=== PATIENT | female | born 1995 | race Caucasian/White ===

== ENCOUNTER 2024-11-26 11:47 | Outpatient (CLI) | payer OTHER, SELFPAY ==
--- NOTE | ~2024-11-26 | XR_ITS ---
Left Hand Technique: PA and lateral views were obtained. Clinical History: Psoriasis Findings: No acute fracture or dislocation is seen. Osseous alignment is anatomic. Joint spaces are p reserved. Soft tissues are unremarkable. Impression: Unremarkable left hand. Reviewed, dictated and finalized at location M. Impression: Unremarkable left hand.
--- NOTE | ~2024-11-26 | XR_ITS ---
Lumbosacral Spine: AP, oblique, and lateral views Clinical History: Psoriasis Findings: The normal lordotic curve is maintained. The vertebral bodies and posterior elements are i ntact. The intervertebral disc spaces are preserved. The sacroiliac joints are normally outlined. Impression: No significant abnormality. Reviewed, dictated and finalized at [facility]. Impression: No significant abnormality.
--- NOTE | ~2024-11-26 | XR_ITS ---
AP and oblique views of the SI joints CLINICAL HISTORY: Psoriasis FINDINGS: Visualized hip and SI joints are unremarkable. No degenerative change. No erosive change or sclerosis. IUD present. Soft tissues are unremarkable. IMPRESSION: Unremarkable exam. Reviewed, dictated and finalized at location M. IMPRESSION: Unremarkable exam.
--- NOTE | ~2024-11-26 | XR_ITS ---
Right Hand Technique: PA and lateral views were obtained. Clinical History: Psoriasis Findings: No acute fracture or dislocation is seen. Osseous alignment is anatomic. Joint spaces are p reserved. Soft tissues are unremarkable. Impression: Unremarkable right hand. Reviewed, dictated and finalized at location M. Impression: Unremarkable right hand.
--- OUTSIDE RECORDS SUMMARY | 2024-11-26 13:07 | XMS_ITS | Referral Summary ---
Author Organization [facility] at the Medical Office Building Address [address] [place] [phone] Care Team Providers Care Clock Mechanic Name Role Phone Concepcion Sheehan MD Primary Care Pro vider Encounters Date Type Department Care Team Description 10/26/2024 Telephone [facility] Medical [facility] Primary Care at [address] [phone] Concepcion Sheehan MD Medical Question/Miscellaneou s 09/13/2024 9:00 AM CDT Office Visit [facility] Primary Care at [address] [phone] Concepcion Sheehan MD Jaw pain (Primary Dx); Need for vaccination 09/12/2024 Telephone [facility] Primary Care at [address] [phone] Concepcion Sheehan MD from Last 3 Months Allergies No known active allergies Medications ixekizumab (TALTZ) 80 mg/mL syringe Inject 1 mL (80 mg total) under the skin once every four weeks 04/15/20 20 Active levonorgestreL (DUSTIN) 14 mcg/24 hrs (3 yrs) 13.5 mg IUD by intrauterine route as directed Active tretinoin (RETIN-A) 0.01 % gelIndications: Acne, unspecified acne type Wash face at night. Wait 30 minutes then apply a pea-sized amount of retinoid cream. Start off every other day and increase to daily as tolerated. If too drying can add moisturizer. 135 g 4 01/30/20 24 Active meloxicam (MOBIC) 15 mg tabletIndicatio ns:Jaw pain Take 1 tablet (15 mg total) by mouth daily for 14 days 14 tablet 09/14/19 25 Active cyclobenzaprine (FLEXERIL) 5 mg tabletIndicatio ns:Jaw pain Take 1-2 tablets (5-10 mg total) by mouth 3 (three) times a day as needed for muscle spasms 30 tablet 09/14/19 25 Active lisdexamfetamin e (Vyvanse) 30 mg tablet,chewable Take 30 mg by mouth daily 30 tablet 11/13/19 25 026 Active lisdexamfetamin e (Vyvanse) 30 mg tablet,chewable Take 30 mg by mouth daily 30 tablet 10/12/19 25 025 Discontin ued(Reord er) Active Problems Problem Noted Date Diagnosed Date Acne 01/30/2024 Assessment & Plan (01/30/2024 4:11 PM CDT): Uncontrolled Will start tretinoin, discussed cannot take if were to get Annual physical exam 01/24/2023 Assessment & Plan (08/06/2024 7:47 AM PREPARATORY TECHNICIAN): Reviewed PMH & Reviewed medications and supplements HCM: orders placed as needed Encouraged to follow up with gynecology for abnormal pap Assessment & Plan (01/30/2024 4:11 PM CDT): Reviewed PMH & FH Phq reviewed Reviewed medications and supplements HCM: orders placed as needed Encouraged to follow up with gynecology for abnormal pap Assessment & Plan (01/24/2023 10:17 AM CDT): Reviewed PMH & Reviewed medications and supplements HCM: orders placed as needed Immunosuppression 09/21/2022 Assessment & Plan (08/06/2024 7:47 AM PREPARATORY TECHNICIAN): 2/2 kemal treatment for psoriasis Advise PCV and shingrex IUD (intrauterine device) in place 09/21/2022 Menstrual disorder 10/30/2020 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 Overview (09/21/2022): Surgical correction today Surgical correction today Psoriasis 05/22/2018 Assessment & Plan (08/06/2024 7:47 AM PREPARATORY TECHNICIAN): Following with dermatology Assessment & Plan (01/24/2023 10:19 AM CDT): Following with dermatology Assessment & Plan (08/23/2022 2:01 PM CDT): Following with dermatology On taltz, triamcinolone and atarax Assessment & Plan (02/17/2022 10:11 AM CDT): Following with dermatology On taltz Assessment & Plan (11/18/2021 3:46 PM CDT): Following with dermatology Assessment & Plan (09/08/2021 2:09 PM CDT): On taltz, continue Referral for foot setter appointment next week ADHD (attention deficit hyperactivity disorder) Assessment & Plan (08/06/2024 7:47 AM PREPARATORY TECHNICIAN): controlled PDMP reviewed, no red flags Continue 40mg vyvanse Assessment & Plan (01/30/2024 4:03 PM CDT): Stable PDMP reviewed, no red flags Continue 40mg vyvanse Assessment & Plan (01/24/2023 10:17 AM CDT): Stable PDMP reviewed, no red flags Continue 40mg vyvanse Assessment & Plan (08/23/2022 2:02 PM CDT): Stable PDMP reviewed, no red flags Continue 40mg vyvanse Assessment & Plan (02/17/2022 10:10 AM CDT): Continue 40mg vyvanse Assessment & Plan (11/18/2021 3:43 PM CDT): Uncontrolled off medications Reviewed previous PCP records PDMP reviewed, no red flags Will refill vyvanse 40mg Assessment & Plan (09/09/2021 1:17 PM CDT): Uncontrolled off medications Reviewed previous PCP records PDMP reviewed, no red flags Will refill vyvanse 40mg Immunizations Immunization Administration Dates Next Due Influenza, Unspecified 03/22/2024(Deferr ed: Patient Refused),04/04/2023(Deferred: Patient Refused) Pneumococcal Conjugate Pcv20 09/13/2024 Tdap 09/13/2024,06/13/2014 Social History Tobacco Use Types Packs/Day Years Used Date Smoking Tobacco: Never Cigarettes Smokeless Tobacco: Never Tobacco Cessation:Counseling Given: Not Answered AUDIT-C Answer Date Recorded Q1: How often do you have a drink containing alc ohol? Monthly or less 08/06/2024 Average Number of Drinks Not on file 025 Frequency of Binge Drinking Not on file 07/15 PHQ-2 Answer Date Recorded PHQ-2 Total Score (If total score is 3 or more points, staff should administer the PHQ-9) 0 08/06/2024 PHQ-9 Answer Date Recorded PHQ-9 Total Score 2 08/06/2024 Comments No Sex and Gender Information Value Date Recorded Sex Assigned at Not on file Legal Sex Female 4:08 PM CDT Gender Identity Female 09/20/2022 10:51 PM CDT Sexual Orientation Straight 09/20/2022 10 :51 PM CDT Last Filed Vital Signs Vital Sign Reading Time Taken Comments Blood Pressure 112/70 09/13/2024 8:59 AM CDT Pulse 68 09/13/2024 8:59 AM CDT Temperature 37.1 C (98.8 F) 09/13/2024 8:59 AM CDT Respiratory Rate 18 09/13/2024 8:59 AM CDT Oxygen Saturation 99% 09/13/2024 8:59 AM CDT Inhaled Oxygen Concentration - - Weight 59.9 kg (132 lb) 09/13/2024 8:59 AM CDT Height 165.1 cm (5' 5) 09/13/2024 8:59 AM CDT Body Mass Index 21.97 09/13/2024 8:59 AM CDT Plan of Treatment Not on file Procedures Procedure Name Priority Date/Time Associated Diagnosis Comments PAP WITH REFLEX TO HIGH RISK HPV Routine 09/21/2022 7:51 AM CDT Cervical cancer screening Well woman exam HEPATITIS C ANTIBODY Routine 09/18/2021 12:56 PM CDT from Last 3 Months or Most Recently Relevant to Health Maintenance Results * (ABNORMAL) Pap with reflex to High Risk HPV (09/21/2022 7:51 AM CDT) Thin prep (Pap test) 09/21/2022 7:51 AM CDT 09/22/2022 7:51 AM CDT Narrative PATHOLOGY [facility] - 09/29/2022 5:52 PM CDT [facility] Department of Pathology [address] [place] [address] Final Report with Addendum Note to Patients: This report may contain a detailed description of human tissue sent by a health care provider to the laboratory for pathologic evaluation. The content of this report is essential for diagnosis and may provide important critical findings. This information may be unfamiliar to patients to review without a medical professional present. It is advised that the patient review this report in the presence of a health care provider who can answer questions and explain the details. Patient Name: BACILIO WOOD Address: [address] [place] [address] Gender: F : 1995 (Age: 26) Service: Location: N : [id number] [facility] #: [id number] Patient Type: E SPECIMEN Taken: 09/21/2022 Received: 09/22/2022 Accessioned:: 09/23/2022 Reported: 09/29/2022 Physician(s): Zohreh Walsh M.D. 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 Report Electronically Reviewed and Signed Out By Mel Schulte M.D. 09/29/2022 17:52:19Addenda: HPV and Genotypes 16 18/45 Interpretation HPV Results: POSITIVE for one or more of types 16, 18, 31, 33, 35, 39, 45, 51, 52, 56, 58, 59, 66 and 68. These high/intermediate risk HPV types are associated with dysplasia and some cervical cancers. Genotyping Results: NEGATIVE for HPV 16 NEGATIVE for HPV 18/45 Tests performed utilizing Gen-Probe Aptima assay. KATARINA Abraham(ASCP)Report Electronically Reviewed and Signed Out By KATARINA Abraham(ASCP) 10/06/2022 09:39:48 Specimen(s) Received: A: Imaged Thinprep Pap Test w/ Reflex HPV - [employer] Cytologic Material Clinical History: Contraceptive History: IUD The Pap test is a screening test used to aid in the detection of cervical cancer and its precursors. It should not be the sole means by which malignant and premalignant lesions are diagnosed. Both false negative and false positive results may occur. It also has poor sensitivity for the detection of endometrial lesions and should not be used to evaluate suspected endometrial abnormalities. For these reasons it is most important to obtain Pap tests at regular intervals. The performance characteristics of some immunohistochemical stains, fluorescence in-situ hybridization tests and immunophenotyping by flow cytometry cited in this report (if any) were determined by the Surgical Pathology Department at [facility] as part of an ongoing customer quality engineer program and in compliance with federally mandated regulations drawn from the Clinical Laboratory Improvement Act of 1988 (CLIA '88). Some of these tests rely on the use of analyte specific reagents and are subject to specific labeling requirements by the US Food and Drug Administration. Such diagnostic tests may only be performed in a facility that is certified by the Department of Health and Human Services as a high complexity laboratory under CLIA '88. The FDA has determined that such clearance or approval is not necessary. This test is used for clinical purposes. It should not be regarded as investigational or for research. Nevertheless, federal rules concerning the medical use of analyte specific reagents require that the following disclaimer be attached to the report: This test was developed and its performance characteristics determined by the Surgical Pathology Department [facility]. It has not been cleared or approved by the U. S. Food and Drug Administration. Karla Walsh MD LAB CYTOLOGY ORDERABLES Fi nal Result PATHOLOGY [facility] * Hepatitis C antibody (09/18/2021 12:56 PM CDT) Hep C Ab Nonreactive Nonreactive [facility] Comment: Interpretive Data Nonreactive: Antibodies to HCV not detected. Does NOT exclude the possibility of recent exposure to HCV. Equivocal: Equivocal for HCV antibodies. Supplemental molecular testing will be automatically performed to determine infection status in accordance with current CDC screening recommendations. Reactive: Positive for HCV antibodies. This may represent current or past HCV infection. Supplemental molecular testing will be automatically performed to determine current infection status in accordance with current CDC screening recommendations. Interpretive data was last revised on 2019. Blood 09/18/2021 12:5 6 PM CDT 09/18/2021 2:30 PM CDT Annie VASQUEZ LAB MICROBIOLOGY - GEN ERAL ORDERABLES Final Result [facility] [address] [facility] Department [place] [address] from Last 3 Months or Most Recently Relevant to Health Maintenance Insurance [employer] [place] HMO/POS [facility] PPO Care Teams Clock Mechanic Relationship Specialty Start Date End Date Concepcion Sheehan MD PCP - General Family Medicine 09/08/21
--- OUTSIDE RECORDS SUMMARY | 2024-11-26 13:07 | XMS_ITS | Encounter Summary ---
Author Organization [facility] Healthcare Address [address] [place] [address] Care Team Providers Care Food Prep Worker Name Role Phone Concepcion Sheehan MD Primary Care Pro vider Reason for Visit * Reason Onset Date Comments Medical Question/Miscellaneous 10/26/2024 Encounter Details Date Type Department Care Team ([facility] st Contact Info) Description 10/26/2024 Telephone [facility] Medical [facility] Primary Care at [address] [phone] Concepcion Sheehan MD [address] [place] [phone] Medical Question/Miscellaneous Social History Tobacco Use Types Packs/Day Years Used Date Smoking Tobacco: Never Cigarettes Smokeless Tobacco: Never AUDIT-C Answer Date Recorded Q1: How often [...] Orientation Straight 09/20/2022 10 :51 PM CDT documented as of this encounter Miscellaneous Notes * Telephone Encounter - Tahmina Hennessy - 10/26/2024 3:32 PM CDT Medical Question/Miscellaneous Caller???s Concern: patient calling requesting a refill on Vyvanse, confirmed for her that it was submitted to the pharmacy on 10/11/24. Does message need to be routed? No documented in this encounter Plan of Treatment Not on file documented as of this encounter Visit Diagnoses Not on filedocumented in this encounter Care Teams Food Prep Worker Relationship Specialty Start Date End Date Concepcion Sheehan MD PCP - General Family Medicine 09/08/21 documented as of this encounter
--- OUTSIDE RECORDS SUMMARY | 2024-11-26 13:07 | XMS_ITS | Clinical Summary ---
Author Organization [facility] at the Medical Office Building Address [address] [place] [address] Care Team Providers Care Cellophane Bath Mixer Name Role Phone Concepcion Sheehan MD Primary Care Pro vider Allergies No known active allergies Medications ixekizumab [...] 01/24/2023 Assessment & Plan (08/06/2024 7:47 AM AIRFRAME TECHNICIAN): Reviewed PMH & FH Reviewed medications and supplements HCM: orders placed as needed Encouraged to follow up with gynecology for abnormal pap Assessment & Plan (01/30/2024 4:11 PM CDT): Reviewed PMH & FH Phq reviewed Reviewed medications and supplements HCM: orders placed as needed Encouraged to follow up with gynecology for abnormal pap Assessment & Plan (01/24/2023 10:17 AM CDT): Reviewed PMH & FH Reviewed medications and supplements HCM: orders placed as needed Immunosuppression 09/21/2022 Assessment & Plan (08/06/2024 7:47 AM AIRFRAME TECHNICIAN): 07/15 taltz treatment for psoriasis Advise PCV and shingrex IUD (intrauterine device) in place 09/21/2022 Menstrual disorder 10/30/2020 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 Overview (09/21/2022): Surgical correction today Surgical correction today Psoriasis 05/22/2018 Assessment & Plan (08/06/2024 7:47 AM AIRFRAME TECHNICIAN): Following with dermatology Assessment & Plan (01/24/2023 10:19 AM CDT): Following with dermatology Assessment & Plan (08/23/2022 2:01 PM CDT): Following with dermatology On taltz, triamcinolone and atarax Assessment & Plan (02/17/2022 10:11 AM CDT): Following with dermatology On taltz Assessment & Plan (11/18/2021 3:46 PM CDT): Following with dermatology Assessment & Plan (09/08/2021 2:09 PM CDT): On taltz, continue Referral for property disposal manager appointment next week ADHD (attention deficit hyperactivity disorder) Assessment & Plan (08/06/2024 7:47 AM AIRFRAME TECHNICIAN): controlled PDMP reviewed, no red flags [...] no red flags Will refill vyvanse 40mg Encounters Date Type Department Care Team Description 10/26/[address] [facility] Medical Group Primary Care at [address] [place] [address] Concepcion Sheehan MD Medical Question/Miscellaneou s 09/13/2024 9:00 AM CDT Office Visit [facility] Medical [facility] Primary Care at [place] [address] [place] [address] Concepcion Sheehan MD Jaw pain (Primary Dx); Need for vaccination 09/12/2024 Telephone [facility] Primary Care at [place] [address] [place] [phone] Concepcion Sheehan MD from Last 3 Months Immunizations Immunization Administration Dates Next Due Influenza, Unspecified 03/22/2024(Deferr ed: Patient Refused),04/04/2023(Deferred: Patient Refused) Pneumococcal Conjugate Pcv20 09/13/2024 Tdap 09/13/2024,06/13/2014 Surgical History Surgery Date Site/Laterality Comments WISDOM TOOTH EXTRACTION COSMETIC SURGERY Medical History Medical History Date Comments ADHD (attention deficit hyperactivity disorder) Psoriasis Autoimmune disease Family History Medical History Relation Name Comments Diabetes Father Bret Breast cancer Maternal Grandmother No Known Problems Mother Alzheimer's disease Paternal Grandmother Maryanne Rensin g Relation Name Status Comments Father Peter Alive Maternal Grandmother Mother Alive Paternal Grandmother Maryanne Rensing Social History Tobacco Use Types Packs/Day Years [...] Orientation Straight 09/20/2022 10 :51 PM CDT Obstetrics History Para Term AB IAB SAB Ectopic Multiple Livin g Live Births 0 0 0 0 0 0 0 0 0 0 0 Last Filed Vital Signs Vital Sign Reading [...] 09/13/2024 8:59 AM CDT Plan of Treatment Health Maintenance Due Date Last Done Comments Hepatitis B Screening 2012 Zoster Vaccine (1 of 2) 2013 Cervical Cancer Screening 09/22/2023 09/21/2022 Influenza Vaccine (Season Ended) 2025 Depression Screening 08/06/2025 08/06/2024, 08/06/2024, 01/30/2024, Additional history exists Regular Well Visit/Exam 18-64 08/06/2025 08/06/2024, 01/30/2024, 01/24/2023, Additional history exists DTaP/Tdap/Td Vaccine (3 - Td or Tdap) 09/13/2034 09/13/2024, 06/13/2014 Hepatitis C Screening Completed 09/18/2021 Pneumococcal vaccine <65 Completed 09/13/2024 HPV Vaccines Aged Out No longer eligi ble based on patient's age to complete this topic Varicella Vaccines Discontinued Procedures Procedure Name Priority Date/Time Associated Diagnosis [...] CDT 09/22/2022 7:51 AM CDT Narrative PATHOLOGY [facility] - 09/29/2022 5:[address] [facility] Department of Pathology [address] [place], [place] [id number] Final Report with Addendum Note to Patients: [...] questions and explain the details. Patient Name: ADRIENNE WOOD Address: [address] [place] [address] Gender: F : 1995 (Age: 26) Service: Location: [facility] : [id number] [facility] #: [id number] Patient Type: [facility] SPECIMEN Taken: 09/21/2022 Received: 09/22/2022 Accessioned:: 09/23/2022 Reported: 09/29/2022 Physician(s): Zohreh Walsh M.D. [facility] Diagnosis: SOURCE OF SPECIMEN Imaged Thinprep Pap Test w/ Reflex HPV - [employer] Cytologic Material: STATEMENT OF ADEQUACY - Satisfactory [...] Thinprep Pap Test w/ Reflex HPV - [employer] Cytologic Material Clinical History: Contraceptive History: IUD [...] determined by the Surgical Pathology Department at [facility] as part of an ongoing quality system manager program and in compliance with federally mandated [...] characteristics determined by the Surgical Pathology Department [facility]. It has not been cleared or approved by the U. S. Food and Drug Administration. Karla Walsh MD LAB CYTOLOGY ORDERABLES Fi nal Result PATHOLOGY [facility] * Hepatitis C antibody (09/18/2021 12:56 PM [...] - GEN ERAL ORDERABLES Final Result [facility] [address] [facility] Department [place] [address] from Last 3 Months or Most Recently Relevant to Health Maintenance Insurance [facility] HMO/POS [facility] PPO Care Teams Cellophane Bath Mixer Relationship Specialty Start Date End Date Concepcion Sheehan MD PCP - General Family Medicine 09/08/21
[2024-11-26 13:38] LABS: Basophils Percent Auto 0.8 % (0.2-1.2); Eosinophils Absolute Auto 0.1 K/mm3 (0-0.3); Eosinophils Percent Auto 1.4 % (0-4.4); Hematocrit 40.1 % (37.0-47.0); Immature Granulocyte Absolute 0.01 K/mm3 (0.00-0.031); Immature Granulocyte Percent A 0.2 % (0-0.5); Lymphocytes Absolute Auto 1.29 K/mm3 (0.9-3.2); Lymphocytes Percent Auto 25.2 % (18.3-44.2); Mean Corpuscular HGB Conc 32.4 g/dl (32-36); Mean Corpuscular Hemoglobin 29.5 pg (26-34); Mean Corpuscular Volume 91.1 fl (80-100); Mean Platelet Volume 10.2 fl (7.4-10.4); Monocytes Absolute Auto 0.4 K/mm3 (0.1-0.6); Neutrophils Absolute Auto 3.3 K/mm3 (1.3-6.7); Neutrophils Percent Auto 64.4 % (45.5-73.1); Platelet Count Result 303 k/mm3 (150-375); Red Cell Distribution Width 12.3 % (11.5-14.5); White Blood Count 5.1 K/mm3 (4.5-10.0)
[2024-11-26 13:46] LABS: Sodium 138 mmol/L (137-145)
[2024-11-26 13:49] LABS: Alanine Aminotransferase 22 U/L (6-35); Alkaline Phosphatase 70 U/L (38-126); Anion Gap 11 mmol/L (4-12); Aspartate Amino Transferase 29 U/L (14-36); Bilirubin Indirect 0.5 mg/dL (0-1.1); Bilirubin,Total 0.5 mg/dL (0.2-1.3); Blood Urea Nitrogen 9 mg/dL (7-17); CRP < 0.5 mg/dL (<1.0); Calcium 9.5 mg/dL (8.4-10.2); Carbon Dioxide 26 mmol/L (22-30); Chloride 101 mmol/L (98-107); Estimated Glomerular Filt Rate > 60; Glucose 100 mg/dL (65-110); Phosphorus 4.7 mg/dL (2.5-4.5); Potassium 3.8 mmol/L (3.4-5.0); Total Protein 8.6 g/dL (6.3-8.2)
[2024-11-26 14:03] LABS: Add Urine Microscopic? NO; Appearance Urine Clear (Clear); Bilirubin Urine Negative (Negative); Blood Urine Negative (Negative); Color Urine Yellow (Yellow); Glucose Urine UA Negative (Negative); Ketones Urine Negative (Negative); Leukocyte Esterase Ur Negative LEU/UL (Negative); Nitrate Urine Negative (Negative); Protein Urine Negative (Negative); Specific Grav Ur 1.004 (1.001-1.035); Urobilinogen Urine 0.2 mg/dL (<2.0)
[2024-11-26 16:06] LABS: Erythrocyte Sedimentation Rate 13 mm/hr (0-20)
== END 2024-11-26 11:48 | disposition home or self-care (01) ==
PROVIDERS: PCP Hospitalist; Visit Provider Internal Medicine
DX: L40.9 Psoriasis, unspecified (principal)
CPT/HCPCS: 36415; 72110; 72202; 73120; 80053; 81003; 82248; 84100; 85025; 85652; 86140